=== PATIENT | male | born 1970 | race Two or more races ===

== ENCOUNTER 2016-07-14 12:05 | Inpatient (IN) | payer OTHER ==
[2016-07-14] MEDS ORDERED: NS 1,000 ML IV ONE (12:36)
--- NOTE | 2016-07-14 12:57 | EDPHY ---
HPI/HX/ROS/PE/MDM Narrative: CHIEF COMPLAINT: Facial swelling, fever HISTORY OF PRESENT ILLNESS: The patient is a Omani-speaking 45 y/o male, with a history of gout, complaining of facial swelling onset 3 days ago. He's had intermittent fever, chills, and cough for the last 2 weeks. Since swelling developed He has associated difficulty swallowing and mild neck pain when trying to sleep. No pain with eye movement. He's experienced similar swelling previously with allergies and states the swelling usually begins in one eye then spreads to the other one. He denies recent dental work. He denies history of diabetes, hypertension. No chest pain, shortness of breath, palpitations, vomiting, diarrhea, urinary complaints, headache, lightheadedness. REVIEW OF SYSTEMS: Aside from elements discussed in the HPI, a comprehensive 10-point review of systems was reviewed and is negative. PAST MEDICAL HISTORY: Gout SOCIAL HISTORY: Omani speaking. Nonsmoker. No alcohol use. No illicit drug use. VITAL SIGNS: Reviewed by me. Febrile 39.1C, tachycardic 111. GENERAL: Well-developed, obese, pleasant, resting comfortably in no respiratory distress. HEENT: Atraumatic. Eyes: EOMI intact without pain. Erythema and marked swelling of the right upper and lower eyelid. No icterus, no injection. Mouth: moist mucous membranes. No erythema or lesions. Normal dentition, no fullness under the tongue. Neck: supple with no adenopathy. Mild erythema extending to the mid right side of the neck. No crepitus. No difficulty with moving the neck. FACE: Diffuse edema, erythema, tenderness, and warmth with small papules extending from right auricle across right eye and cheek to mid forehead and nose and down to base of neck. Edema around right upper and lower eyelids has almost completely obscured his eye. No tenderness on left side. LUNGS: Clear to auscultation bilaterally, no wheezes, rhonchi or rales. CARDIAC: Tachycardic rate, no rubs, murmurs or gallops. ABDOMEN: Soft, nontender, nondistended, bowel sounds normal. BACK: No CVA tenderness. EXTREMITIES: No trauma. No edema. Range of motion is normal throughout. NEURO: Alert and oriented, grossly nonfocal. SKIN: Hot and dry, no rash. PSYCHIATRIC: Normal mentation, no agitation. Portions of this note were transcribed by a medical affairs manager. I personally performed a history, physical exam, medical decision making, and confirmed accuracy of information the transcribed note. ED Course: This is a 45 y/o male with a history of gout who presents with a 3-day history of dramatic right-sided facial swelling, tenderness, and warmth in the setting of 2 weeks of intermittent fever, chills, and cough. He reports he's had similar symptoms previously with allergies, but not this bad. On exam, the edema and erythema extends from his right ear across the right side of his face and down to the base of his neck. It is warm to the touch and has small papules. He is febrile at 39.1C and tachycardic at 119. He meets sepsis criteria at this time. Plan for IV, sepsis labs, fever control, and ID consult. He declines pain medication at this time. IV established. Labs drawn. Fluid bolus administered. 1300: Consulted with Dr. Morocho, ID. He will assess patient in the ED. 1gm IV Ertapenem and 1gm IV Vancomycin administered. Soft tissue CT neck and orbits CT ordered. Lactic acid normal. WBC 12.84. Labs are unremarkable. 1338: Spoke with hospitalist service. Dr. Card accepts admission. Results: CT scan of the orbits and soft tissue neck were obtained. I viewed the images independently on the PACS system. I discussed the results of the study with the radiologist. Impression: No evidence of deep space abscess, no periorbital or orbital cellulitis. Please see the full radiology report. Severe Sepsis/Septic Shock Care Note The patient presents to the ED with cellulitis identified as an acute infection. The patient did have evidence of sepsis with tachycardia and fever. He did not meet criteria for severe sepsis. MDM: Differential diagnoses for the patient's symptom complex was considered including but not limited to facial cellulitis, erysipelas, saw stir was secondary infection, deep space abscess, periorbital cellulitis, orbital cellulitis. - Data Points Imaging Results: Imaging Impressions Neck CT 07/14/16 13:44 Impression: 1. Cellulitis suspected over the right side of the face to the upper neck without evidence of underlying abscess. 2. Reactive prominent lymph nodes are seen within the neck involving level 1 through level 5 nodes. 3. Nonspecific maxillary sinus disease. 4. Prominence of the adenoid and palatine tonsils. Findings discussed with Loren Wallis MD at 14:47 hour, 07/14/2016. Imaging: Discussed imaging studies w/ call center receptionist Radiologist Laboratory Results: Laboratory Results 07/14/16 12:35 07/14/16 12:35 07/14/16 07/14/16 07/14/16 13:35 12:35 12:35 WBC RBC Hgb Hct MCV MCH MCHC RDW Plt Count MPV Neut % (Auto) Lymph % (Auto) Brown % (Auto) Eos % (Auto) Baso % (Auto) Nucleat RBC Rel Count Absolute Neuts (auto) Absolute Lymphs (auto) Absolute Monos (auto) Absolute Eos (auto) Absolute Basos (auto) Absolute Nucleated RBC Immature Gran % Immature Gran # PT 14.0 SEC SEC (12.0-15.0) INR 1.09 (0.83-1.16) APTT 33.7 SEC SEC (23.0-38.0) VBG Lactic Acid 1.0 mmol/L mmol/L (0.7-2.1) Sodium 133 mEq/L L mEq/L (134-144) Potassium 4.1 mEq/L mEq/L (3.5-5.2) Chloride 97 mEq/L mEq/L (97-110) Carbon Dioxide 24 mEq/l mEq/l (22-31) Anion Gap 12 mEq/L mEq/L (8-16) BUN 11 mg/dL mg/dL (7-23) Creatinine 0.8 mg/dL mg/dL (0.7-1.3) Estimated GFR > 60 Glucose 110 mg/dL H mg/dL (70-100) Calcium 8.5 mg/dL mg/dL (8.5-10.4) Total Bilirubin 0.8 mg/dL mg/dL (0.1-1.4) 07/14/16 12:35 WBC 12.84 10^3/uL H 10^3/uL (3.80-9.50) RBC 4.12 10^6/uL L 10^6/uL (4.40-6.38) Hgb 13.6 g/dL L g/dL (13.7-17.5) Hct 39.5 % L % (40.0-51.0) MCV 95.9 fL fL (81.5-99.8) MCH 33.0 pg pg (27.9-34.1) MCHC 34.4 g/dL g/dL (32.4-36.7) RDW 12.5 % % (11.5-15.2) Plt Count 230 10^3/uL 10^3/uL (150-400) MPV 11.6 fL fL (8.7-11.7) Neut % (Auto) 72.1 % % (39.3-74.2) Lymph % (Auto) 18.4 % % (15.0-45.0) Brown % (Auto) 8.8 % % (4.5-13.0) Eos % (Auto) 0.1 % L % (0.6-7.6) Baso % (Auto) 0.3 % % (0.3-1.7) Nucleat RBC Rel Count 0.0 % % (0.0-0.2) Absolute Neuts (auto) 9.26 10^3/uL H 10^3/uL (1.70-6.50) Absolute Lymphs (auto) 2.36 10^3/uL 10^3/uL (1.00-3.00) Absolute Monos (auto) 1.13 10^3/uL H 10^3/uL (0.30-0.80) Absolute Eos (auto) 0.01 10^3/uL L 10^3/uL (0.03-0.40) Absolute Basos (auto) 0.04 10^3/uL 10^3/uL (0.02-0.10) Absolute Nucleated RBC 0.00 10^3/uL 10^3/uL (0-0.01) Immature Gran % 0.3 % % (0.0-1.1) Immature Gran # 0.04 10^3/uL 10^3/uL (0.00-0.10) PT INR APTT VBG Lactic Acid Sodium Potassium Chloride Carbon Dioxide Anion Gap BUN Creatinine Estimated GFR Glucose Calcium Total Bilirubin Medications Given: Discontinued Medications Sodium Chloride (Ns) 1,000 mls @ 0 mls/hr IV ONCE ONE PRN Reason: Wide Open Stop: 07/14/16 12:37 Last Admin: 07/14/16 12:37 Dose: 1,000 mls Sodium Chloride (Ns) 2,700 mls @ 5,400 mls/hr 30 ml/kg infuse over 30 min ( 2700 ml) IV EDNOW ONE Stop: 07/14/16 13:40 Last Admin: 07/14/16 13:30 Dose: 1,700 mls Vancomycin/Sodium Chloride (Vancomycin 1 Gm (Premix)) 250 mls @ 250 mls/hr IV EDNOW ONE PRN Reason: Protocol Stop: 07/14/16 14:12 Last Admin: 07/14/16 13:20 Dose: 250 mls Ertapenem 1 gm/ Sodium (Chloride) 100 mls @ 200 mls/hr IV EDNOW ONE PRN Reason: Protocol Stop: 07/14/16 13:43 Last Admin: 07/14/16 14:50 Dose: 100 mls General Time Seen by Provider: 07/14/16 12:20 Initial Vital Signs: Initial Vital Signs Temperature (C) 39.1 C H 07/14/16 12:07 Heart Rate 119 H 07/14/16 12:07 Respiratory Rate 18 07/14/16 12:07 Blood Pressure 131/86 H 07/14/16 12:07 O2 Sat (%) 95 07/14/16 12:07 O2 Delivery Mode Room Air Allergies/Adverse Reactions: No Known Allergies Allergy (Unverified 07/14/16 12:12) Home Medications: Medication Instructions Recorded Ibuprofen [Motrin (*)] 200 mg PO DAILY PRN 07/14/16 Departure - Departure Disposition: [facility] Inpatient Acute Clinical Impression: Facial cellulitis Condition: Fair Report Scribed for: Loren Wallis Report Scribed by: Manju Sim Date of Report: 07/14/16 Time of Report: 12:57
[2016-07-14] MEDS ORDERED: NS 2,700 ML IV ONE (13:11)
[2016-07-14] MEDS ORDERED: VANCOMYCIN HCL/NORMAL SALINE 250 ML IV ONE (13:13)
[2016-07-14] MEDS ORDERED: ERTAPENEM 1 GM in NS 100 ML IV ONE (13:14)
[2016-07-14 13:19] LABS: % IMMATURE GRANULYOCYTES 0.3 % (0.0-1.1); ABSOLUTE IMMATURE GRANULOCYTES 0.04 10^3/uL (0.00-0.10); ADD DIFF? NO; ADD MORPH? NO; ADD SCAN? NO; ATYPICAL LYMPHOCYTE FLAG 0 (0-99); FRAGMENT RBC FLAG 0 (0-99); HEMATOCRIT 39.5 % (40.0-51.0); HEMOGLOBIN 13.6 g/dL (13.7-17.5); LEFT SHIFT FLG 90 (0-99); LIPEMIA HEMOLYSIS FLAG 90 (0-99); MEAN CELL HEMOGLOBIN CONCENTR. 34.4 g/dL (32.4-36.7); MEAN CELL VOLUME 95.9 fL (81.5-99.8); MEAN PLATELET VOLUME 11.6 fL (8.7-11.7); PLATELET CLUMPS FLAG 0 (0-99); PLATELET COUNT 230 10^3/uL (150-400); RED BLOOD CELL COUNT 4.12 10^6/uL (4.40-6.38); RED CELL DISTRIBUTION WIDTH 12.5 % (11.5-15.2)
[2016-07-14 13:27] LABS: ANION GAP 12 mEq/L (8-16); BILIRUBIN,TOTAL 0.8 mg/dL (0.1-1.4); CALCIUM 8.5 mg/dL (8.5-10.4); CARBON DIOXIDE 24 mEq/l (22-31); CHLORIDE 97 mEq/L (97-110); CREATININE 0.8 mg/dL (0.7-1.3); GLOMERULAR FILTRATION RATE > 60; GLUCOSE 110 mg/dL (70-100); INR 1.09 (0.83-1.16); POTASSIUM 4.1 mEq/L (3.5-5.2); SODIUM 133 mEq/L (134-144)
[2016-07-14 13:28] LABS: APTT 33.7 SEC (23.0-38.0)
[2016-07-14] MEDS ORDERED: IOPAMIDOL (ISOVUE-300) 100 ML BTL ONE (13:51)
[2016-07-14 14:16] LABS: COLOR PALE YELLOW; LEUKOCYTE ESTERASE,URINE NEGATIVE (NEGATIVE); NITRITE,URINE NEGATIVE (NEGATIVE)
[2016-07-14 14:20] LABS: BACTERIA NONE SEEN /hpf (NONE SEEN); MUCUS NONE SEEN /lpf (NONE-1+)
--- NOTE | 2016-07-14 14:58 | PDGENHP ---
History and Physical - Chief Complaint Right-sided facial pain in swelling - History of Present Illness This is a 45-year-old male with history of gout and hyperlipidemia who was referred to the emergency department by his primary care doctor after he went today to be seen for a 3 day history of right sided facial redness, swelling, and pain. He denies any trauma to his face. He denies any vision changes. He denies any pain with movement of his eye. He has had some subjective fevers and chills. History Information - Allergies/Home Medication List Allergies/Adverse Reactions: No Known Allergies Allergy (Unverified 07/14/16 12:12) Home Medications: Ibuprofen [Motrin (*)] 200 mg PO DAILY PRN 07/14/16 [Last Taken Unknown] I have personally reviewed and updated: family history, medical history, social history, surgical history - Past Medical History Additional medical history: Gout, dyslipidemia - Surgical History Reports: no pertinent surgical hx - Family History Positive for: diabetes type II - Social History Smoking Status: Never smoked Alcohol Use: None Drug Use: None Review of Systems ROS: 10pt was reviewed & negative except for what was stated in HPI & below Physical Exam Temp Pulse Resp BP Pulse Ox 38.1 C 101 H 21 H 124/79 H 94 07/14/16 14:30 07/14/16 14:30 07/14/16 14:30 07/14/16 14:30 07/14/16 14:30 Constitutional: no apparent distress, appears nourished, not in pain Eyes: PERRL, anicteric sclera, EOMI (Without entrapment) Ears, Nose, Mouth, Throat: hearing normal, other (The pinna of the right ear is swollen as external acoustic canal is patent without lesions or discharge; tympanic membrane is intact) Cardiovascular: regular rate and rhythym, no murmur, rub, or gallop, No edema Respiratory: no respiratory distress, no rales or rhonchi, clear to auscultation Gastrointestinal: normoactive bowel sounds, soft, non-tender abdomen, no palpable masses Genitourinary: no bladder fullness, no bladder tenderness Skin: other (Preseptal erythema and swelling; able to open the right eye with minimal ptosis) Musculoskeletal: full muscle strength, no muscle tenderness, normal joint ROM, no joint effusions Neurologic: AAOx3, CN II-XII Intact, No facial droop Lymph, Heme, Immunologic: lymphadenopathy (Right cervical lymphadenopathy) Lab Data & Imaging Review 07/14/16 12:35 07/14/16 12:35 WBC 12.84 10^3/uL (3.80-9.50) H 07/14/16 12:35 RBC 4.12 10^6/uL (4.40-6.38) L 07/14/16 12:35 Hgb 13.6 g/dL (13.7-17.5) L 07/14/16 12:35 Hct 39.5 % (40.0-51.0) L 07/14/16 12:35 MCV 95.9 fL (81.5-99.8) 07/14/16 12:35 MCH 33.0 pg (27.9-34.1) 07/14/16 12:35 MCHC 34.4 g/dL (32.4-36.7) 07/14/16 12:35 RDW 12.5 % (11.5-15.2) 07/14/16 12:35 Plt Count 230 10^3/uL (150-400) 07/14/16 12:35 MPV 11.6 fL (8.7-11.7) 07/14/16 12:35 Neut % (Auto) 72.1 % (39.3-74.2) 07/14/16 12:35 Lymph % (Auto) 18.4 % (15.0-45.0) 07/14/16 12:35 [place] % (Auto) 8.8 % (4.5-13.0) 07/14/16 12:35 Eos % (Auto) 0.1 % (0.6-7.6) L 07/14/16 12:35 Baso % (Auto) 0.3 % (0.3-1.7) 07/14/16 12:35 Nucleat RBC Rel Count 0.0 % (0.0-0.2) 07/14/16 12:35 Absolute Neuts (auto) 9.26 10^3/uL (1.70-6.50) H 07/14/16 12:35 Absolute Lymphs (auto) 2.36 10^3/uL (1.00-3.00) 07/14/16 12:35 Absolute Monos (auto) 1.13 10^3/uL (0.30-0.80) H 07/14/16 12:35 Absolute Eos (auto) 0.01 10^3/uL (0.03-0.40) L 07/14/16 12:35 Absolute Basos (auto) 0.04 10^3/uL (0.02-0.10) 07/14/16 12:35 Absolute Nucleated RBC 0.00 10^3/uL (0-0.01) 07/14/16 12:35 Immature Gran % 0.3 % (0.0-1.1) 07/14/16 12:35 Immature Gran # 0.04 10^3/uL (0.00-0.10) 07/14/16 12:35 PT 14.0 SEC (12.0-15.0) 07/14/16 12:35 INR 1.09 (0.83-1.16) 07/14/16 12:35 APTT 33.7 SEC (23.0-38.0) 07/14/16 12:35 VBG Lactic Acid 1.0 mmol/L (0.7-2.1) 07/14/16 13:35 Sodium 133 mEq/L (134-144) L 07/14/16 12:35 Potassium 4.1 mEq/L (3.5-5.2) 07/14/16 12:35 Chloride 97 mEq/L (97-110) 07/14/16 12:35 Carbon Dioxide 24 mEq/l (22-31) 07/14/16 12:35 Anion Gap 12 mEq/L (8-16) 07/14/16 12:35 BUN 11 mg/dL (7-23) 07/14/16 12:35 Creatinine 0.8 mg/dL (0.7-1.3) 07/14/16 12:35 Estimated GFR > 60 07/14/16 12:35 Glucose 110 mg/dL (70-100) H 07/14/16 12:35 Calcium 8.5 mg/dL (8.5-10.4) 07/14/16 12:35 Total Bilirubin 0.8 mg/dL (0.1-1.4) 07/14/16 12:35 Urine Color PALE YELLOW 07/14/16 14:00 Urine Appearance CLEAR 07/14/16 14:00 Urine pH 7.0 (5.0-7.5) 07/14/16 14:00 Ur Specific [place] 1.005 (1.002-1.030) 07/14/16 14:00 Urine Protein NEGATIVE (NEGATIVE) 07/14/16 14:00 Urine Ketones NEGATIVE (NEGATIVE) 07/14/16 14:00 Urine Blood 1+ (NEGATIVE) H 07/14/16 14:00 Urine Nitrate NEGATIVE (NEGATIVE) 07/14/16 14:00 Urine Bilirubin NEGATIVE (NEGATIVE) 07/14/16 14:00 Urine Urobilinogen NEGATIVE EU (0.2-1.0) 07/14/16 14:00 Ur Leukocyte Esterase NEGATIVE (NEGATIVE) 07/14/16 14:00 Urine RBC 1-3 /hpf (0-3) 07/14/16 14:00 Urine WBC 1-3 /hpf (0-3) 07/14/16 14:00 Ur Epithelial Cells NONE SEEN /lpf (NONE-1+) 07/14/16 14:00 Urine Bacteria NONE SEEN /hpf (NONE SEEN) 07/14/16 14:00 Urine Mucus NONE SEEN /lpf (NONE-1+) 07/14/16 14:00 Urine Glucose NEGATIVE (NEGATIVE) 07/14/16 14:00 Visualized and Interpreted imaging results: Yes Interpretation: This CT of the neck was reviewed in visualized final read is pending. There is no obvious abscess Assessment & Plan Assessment: This is a 45-year-old male with history of gout presenting with: # Facial cellulitis (Acute) # sepsis in the setting of facial cellulitis with fever and leukocytosis Plan: -will start IV clindamycin and cefazolin -monitor for signs and symptoms of severe sepsis or septic shock Place in observation Recommend early ambulation for DVT prophylaxis
[2016-07-14] MEDS ORDERED: oxyCODONE IR 5 MG TAB PO PRN (15:08)
[2016-07-14] MEDS ORDERED: ACETAMINOPHEN 325 MG TAB PO PRN (15:08)
[2016-07-14] MEDS ORDERED: ONDANSETRON 4 MG/2 ML VIAL IVP PRN (15:08)
[2016-07-14] MEDS ORDERED: ZOLPIDEM TARTRATE 5 MG TAB PO PRN (15:11)
[2016-07-14] MEDS: CEFEPIME HCL 2 GM in D5W 100 ML IV SCH (21:09)
--- NOTE | 2016-07-14 21:18 | GCON ---
[f rep st] CONSULTATION INFECTIOUS DISEASE CONSULTATION DATE OF CONSULTATION: 07/14/2016 REFERRING PHYSICIAN: Loren Wallis MD REASON FOR CONSULTATION: Facial cellulitis. ADDITIONAL REQUESTING PHYSICIAN: Jacob Cadr DO HISTORY OF PRESENT ILLNESS: The patient is a 45-year-old male without significant past medical hist ory, who I am asked to see in consultation for facial cellulitis with associated sepsis. The patien t describes developing a swollen lymph node behind the right ear approximately 3 days ago. This was followed by development of erythema, edema and tenderness over the right ear, right side of the fac e including the periorbital region. He had swelling which made opening his eye difficult but did no t have eye pain or visual disturbance. These symptoms were associated with fever and chills. These symptoms persisted and earlier today he notes that he also experienced involvement of the left side of his face, primarily over the cheek. There is associated warmth and tenderness. No prior histor y of skin and soft tissue infection. Based on these findings, he presented to the emergency departm ent today where he was noted to have a temperature of 39.1, with associated tachycardia. He was lalo ated empirically with vancomycin and ertapenem which has now been changed to cefazolin and clindamyc in. CT scan of the neck and face was performed showing right-sided cellulitis with no evidence of a bscess formation; reactive lymphadenopathy was present and mucosal thickening of both maxillary sinu ses was noted. A small air-fluid level was also noted in the right maxillary sinus. The patient do es not have any difficulty swallowing. There is no associated sore throat. He does have some anter ior neck tenderness. Given the above findings, I am now asked to assist in his ongoing management. PAST MEDICAL HISTORY: Hyperlipidemia, gout. PAST SURGICAL HISTORY: No prior surgeries. CURRENT MEDICATIONS: Cefazolin 2 g IV q.8 hours, clindamycin 600 mg IV q.8 hours; status post vanco mycin and ertapenem in the emergency department. ALLERGIES: No known drug allergies. SOCIAL HISTORY: Patient does not smoke. He drinks alcohol occasionally. No drug use. FAMILY HISTORY: Diabetes mellitus. REVIEW OF SYSTEMS: Outside that noted in HPI, remainder of a 10-system review is unremarkable. PHYSICAL EXAMINATION: VITAL SIGNS: Temperature maximum 39.1, temperature current 37.2, heart rate 100, respiratory rate 18, blood pressure 134/80, oxygen saturation 96% on room air. GENERAL: Patisamira allen is an obese male in no acute distress. He appears nontoxic. HEENT: There is bilateral facial e rythema with edema and fairly sharp margins present affecting the left cheek, right cheek, right per iorbital region, and right ear. The right ear shows edema with tenderness. There are no areas of n ecrosis or fluctuance. The patient is able to open his right eye without difficulty. The extraocul ar muscles are intact. There is no nasal discharge. NECK: Supple with a tender postauricular node on the right. There are some shotty tender anterior cervical nodes as well. The neck is supple. Erythema does not extend onto the anterior or posterior neck. CHEST: Clear to auscultation bilater ally without adventitious sounds. Respiratory effort is normal. CARDIOVASCULAR: Regular rate and rhythm with a 2/6 systolic ejection murmur heard at left upper sternal border. There are no gallops or rubs noted. ABDOMEN: Obese, nontender, nondistended. There is no palpable organomegaly. Mirza l sounds are present. MUSCULOSKELETAL: No cyanosis, clubbing, or edema. SKIN: No stigmata of end ocarditis. Skin is warm and dry to touch. NEUROLOGIC: Patient is alert and interacts appropriatel y with the examiner. Cranial nerves 2-12 are grossly intact. Muscle tone and bulk are normal. Sen sation is grossly intact. LYMPHATICS: See HEENT exam; no epitrochlear nodes palpable. LABORATORY DATA: White blood cell count 12.8, hematocrit 39.5, platelets 230, neutrophils 72%, lymp hocytes 18%. Serum creatinine 0.8, bicarbonate 24, glucose 110. INR 1.1. Venous lactate 1. Urina lysis shows no glucose with 1-3 red blood cells and 1-3 white blood cells. Blood cultures x2 sets a re pending. CT scan of the neck and face, as outlined in the History of Present Illness. IMPRESSION: Facial cellulitis: Findings are compatible with facial cellulitis which is compatible with erysipelas, although the right ear involvement is less typical for this entity. Suspect beta-h emolytic streptococci or Staphylococcus aureus will be most likely etiologies with community-acquire d Methicillin resistant Staphylococcus aureus a possibility. Given the ear involvement, Pseudomonas becomes a consideration, although no typical risk factors such as diabetes or immunosuppression are present. No evidence to suggest malignant otitis externa on examination. Clinical findings consis tent with periorbital cellulitis without evidence of orbital cellulitis by exam or imaging. RECOMMENDATIONS: 1. Vancomycin 1.5 g IV q.12 hours. 2. Cefepime 2 g IV q.8 hours to cover Pseudomonas as this can be etiology for malignant otitis exte rna. 3. Discontinue cefazolin and clindamycin. 4. Follow up blood cultures and clinical exam over time. Thank you for this consultation. We will continue to follow patient with you. /[id number]/MODL
[2016-07-14] MEDS ORDERED: CEFEPIME HCL 2 GM in D5W 100 ML IV SCH (22:00)
[2016-07-14] MEDS ORDERED: CLINDAMYCIN 600 MG/DEXTROSE 50 ML IV SCH (22:00)
[2016-07-14] MEDS ORDERED: ceFAZolin 2 GM/DEXTROSE 100 ML IV SCH (22:00)
[2016-07-15] MEDS: VANCOMYCIN 1.5 GM in D5W 250 ML IV SCH ×2 (00:49→13:46)
[2016-07-15 04:40] LABS: % IMMATURE GRANULYOCYTES 0.4 % (0.0-1.1); ABSOLUTE IMMATURE GRANULOCYTES 0.04 10^3/uL (0.00-0.10); ADD DIFF? NO; ADD MORPH? NO; ADD SCAN? NO; ATYPICAL LYMPHOCYTE FLAG 0 (0-99); FRAGMENT RBC FLAG 0 (0-99); HEMATOCRIT 40.5 % (40.0-51.0); HEMOGLOBIN 13.9 g/dL (13.7-17.5); LEFT SHIFT FLG 90 (0-99); LIPEMIA HEMOLYSIS FLAG 90 (0-99); MEAN CELL HEMOGLOBIN 33.3 pg (27.9-34.1); MEAN CELL HEMOGLOBIN CONCENTR. 34.3 g/dL (32.4-36.7); MEAN CELL VOLUME 96.9 fL (81.5-99.8); MEAN PLATELET VOLUME 11.3 fL (8.7-11.7); PLATELET CLUMPS FLAG 10 (0-99); PLATELET COUNT 235 10^3/uL (150-400); RED BLOOD CELL COUNT 4.18 10^6/uL (4.40-6.38); RED CELL DISTRIBUTION WIDTH 12.9 % (11.5-15.2)
[2016-07-15 04:54] LABS: ANION GAP 12 mEq/L (8-16); CALCIUM 8.9 mg/dL (8.5-10.4); CARBON DIOXIDE 26 mEq/l (22-31); CHLORIDE 104 mEq/L (97-110); CREATININE 0.8 mg/dL (0.7-1.3); GLOMERULAR FILTRATION RATE > 60; GLUCOSE 111 mg/dL (70-100); POTASSIUM 4.2 mEq/L (3.5-5.2); SODIUM 142 mEq/L (134-144)
[2016-07-15] MEDS: CEFEPIME HCL 2 GM in D5W 100 ML IV SCH ×3 (05:06→21:18)
--- NOTE | 2016-07-15 14:14 | PCMIDPN ---
Assessment/Plan: Assessment/Plan: 1. Bilateral facial cellulitis/preseptal cellulitis/right ear cellulitis: - Compared to yesterday, per notes, and coordiation with other providers, RN,- patient has significantly improved -However, still has erythema, induration bilaterally, and preseptal tenderness around right eye etc. -Blood cx still pending -FAvor at least 1 more day of IV antibiotics given above. Depending on ongoing degree of improvement, then could possible pattern changer and repairer to oral antibiotics thereafter. -Has also moderate maxilllary sinus disease with tenderness on exam--so possibly Augmentin may be a good option to pattern changer and repairer to. -Currently on vanco, cefepime. -Care coordinated with hospitalist team, RN. Meds vanco cefepime Subjective: Afebrile. feels better. less overall pain. less erythema but bilateral patchy involvment today. denies sob, abd pain or diarrhea. has some sinus pain. denies ear pain or drainage. spoke to patient via labor arbitrator hearing office. Objective: Vital Signs Temp Pulse Resp BP Pulse Ox 36.7 C 72 16 121/84 H 94 07/15/16 11:47 07/15/16 11:47 07/15/16 11:47 07/15/16 11:47 07/15/16 11:47 Laboratory Results 07/15/16 04:26 07/15/16 04:26 07/14/16 07/15/16 07/16/16 05:59 05:59 05:59 Intake Total 2950 Output Total 700 Balance 2250 - Physical Exam General Appearance: alert, no apparent distress Respiratory: lungs clear Cardiac/Chest: regular rate, rhythm Extremities: No swelling Abdomen: normal bowel sounds, non-tender, soft, No distended Skin: erythema (face: erythema over right eye, right ear with induration. tenderness just lateral to right eye. no restricted or painful eye movements. EOM intact. erythema over left cheek with induration. tender to palpate. ) ICD10 Worksheet Patient Problems: Problems Problem Status Onset Facial cellulitis Acute
--- NOTE | 2016-07-15 15:03 | HOSPPROG ---
Hospitalist Progress Note Assessment/Plan: This is a 45-year-old male with history of gout presenting with: # Facial cellulitis (Acute) without signs of orbital cellulitis or malignant otitis externa (Improving) # sepsis in the setting of facial cellulitis with fever and leukocytosis ( resolved) Plan: - I discussed case with Dr. Vasquez who is recommending 1 more day of IV cefepime and vancomycin prior to switching to oral therapy will change to inpatient status given need for IV antibiotic therapy patient is low risk for DVT and recommend ambulation while in the hospital Subjective: denies any loss of vision. Improved facial pain in swelling. Denies pain with eye movement. The patient was seen with the medical composite laminator present Objective: Vital Signs Temp Pulse Resp BP Pulse Ox 36.7 C 72 16 121/84 H 94 07/15/16 11:47 07/15/16 11:47 07/15/16 11:47 07/15/16 11:47 07/15/16 11:47 Laboratory Results 07/15/16 04:26 07/15/16 04:26 07/14/16 07/15/16 07/16/16 05:59 05:59 05:59 Intake Total 2950 Output Total 700 Balance 2250 PT 14.0 SEC (12.0-15.0) 07/14/16 12:35 INR 1.09 (0.83-1.16) 07/14/16 12:35 - Physical Exam Constitutional: no apparent distress, appears nourished, not in pain Cardiovascular: regular rate and rhythym, no murmur, rub, or gallop Respiratory: no respiratory distress, no rales or rhonchi, clear to auscultation Musculoskeletal: other ( improving erythema over the right periorbital region extending to the right ear) ICD10 Worksheet Patient Problems: Problems Problem Status Onset Facial cellulitis Acute
[2016-07-16] MEDS: VANCOMYCIN 1.5 GM in D5W 250 ML IV SCH (00:09)
[2016-07-16] MEDS: CEFEPIME HCL 2 GM in D5W 100 ML IV SCH (05:09)
[2016-07-16 07:30] VITALS: BP 132/87; PULSE 77; RESP 12; TEMP 97.4; O2SAT 95
--- NOTE | 2016-07-16 11:47 | GDS ---
[f rep st] DISCHARGE SUMMARY DISCHARGE DIAGNOSES: 1. Facial cellulitis. 2. Resolved sepsis. CONSULTANTS: Dr. Harvey Morocho, Infectious Disease. HOSPITAL COURSE AND STAY BY PROBLEM: 1. Facial cellulitis: The patient presented to the emergency department with significant right fac ial swelling and erythema. He was seen by Infectious Disease who recommended treatment with IV vanc omycin and cefepime. He made a dramatic improvement on hospital day #1, but Infectious Disease requ ested 1 additional day of IV antibiotics. On hospital day #2 his swelling and erythema has almost r esolved. He denies any vision loss, or pain with eye movement. I discussed the case with Dr. Harvey Morocho from Infectious Disease on day of discharge, who recommended a 7 day course of Augmentin. The patient was seen with the medical salesperson surgical appliances present. PHYSICAL EXAM: VITAL SIGNS: On day of discharge, blood pressure 132/87, pulse 77, respiratory rate 12, O2 saturation 95% on room air, temperature afebrile. GENERAL: No acute distress. HEART: S1, S2. LUNGS: Clear. ABDOMEN: Soft. FACE: There is improved erythema and swelling over the right face and ear. Pupils are equal and reactive to light and accommodation. There is no entrapment. DIAGNOSTICS DONE IN THIS HOSPITAL STAY: A CT of the neck and face with contrast done 07/14/2016: Petty huggins to report for details. DISCHARGE MEDICATIONS: Please refer to discharge medication reconciliation [facility] for full detail s. Below is a preliminary list. NEW MEDICATIONS ON HOSPITAL DISCHARGE: Augmentin 875 mg p.o. twice daily for 7 days. DISCHARGE INSTRUCTIONS: The patient will be discharged from the hospital where he should follow up with Dr. Morocho as scheduled on 07/22/2016, at 9 a.m. He was instructed to seek medical attention if his symptoms return. /[id number]/MODL
--- NOTE | 2016-07-16 15:26 | PCMIDPN ---
Assessment/Plan: Assessment/Plan: * Facial cellulitis: Marked clinical improvement with vancomycin and cefepime. Clinical appearance and rapidity of response most consistent with streptococcal etiology. Will transition to Augmentin 875 mg p.o. twice daily x7 days to complete therapy. Have arrange follow-up in our office next week. Advised patient to notify for fever, recurrent redness, swelling or increasing tenderness. 07/16/16 15:23 Subjective: Patient feels much better with less facial redness and swelling. No diarrhea. Objective: Vital Signs Temp Pulse Resp BP Pulse Ox 36.3 C 77 12 132/87 H 95 07/16/16 07:30 07/16/16 07:30 07/16/16 07:30 07/16/16 07:30 07/16/16 07:30 07/15/16 07/16/16 07/17/16 05:59 05:59 05:59 Intake Total 860 Balance 860 - Physical Exam General Appearance: alert, no apparent distress EENT: other (Facial erythema markedly decreased including over right ear which is significantly less swollen; no tenderness to palpation; periorbital edema markedly decreased; extraocular muscles intact; no proptosis) Neck: supple Lymphatic: No adenopathy ICD10 Worksheet Patient Problems: Problems Problem Status Onset Facial cellulitis Acute
== END 2016-07-16 12:03 | disposition home or self-care (01) | DRG 872 ==
LOC: INTOOBSV 13:46 → F3E 15:00 → OBSVTOIN 07-15 15:03
PROVIDERS: ADMIT Family Medicine; ATTEND Family Medicine
DX: A41.9 Sepsis, unspecified organism (principal); L03.211 Cellulitis of face; M10.9 Gout, unspecified; E78.5 Hyperlipidemia, unspecified
CPT/HCPCS: 96365; G0378; J0692; J1335; J3370; Q9967